=== PATIENT | female | born 1980 | race Caucasian/White ===

== ENCOUNTER 2017-09-04 10:44 | Outpatient (CLI) | payer OTHER ==
[2017-09-04 17:45] LABS: BASOPHILS % (AUTO) 0.5 %; EOSINOPHILS # (AUTO) 0.1 10^3/uL (0.0-0.7); EOSINOPHILS % (AUTO) 1.8 %; HGB - HEMOGLOBIN 12.3 g/dL (12.0-16.0); LYMPHOCYTES # (AUTO) 1.6 10^3/uL (1.5-3.5); LYMPHOCYTES % (AUTO) 33.8 %; MEAN CORPUSCULAR HEMOGLOBIN 29.6 pg (27.0-31.0); MEAN CORPUSCULAR HGB CONC 32.7 g/dL (32.0-36.0); MEAN CORPUSCULAR VOLUME 90.5 fL (81.0-99.0); MEAN PLATELET VOLUME 7.8 fL (7.9-10.8); MONOCYTES # (AUTO) 0.3 10^3/uL (0.0-1.0); MONOCYTES % (AUTO) 5.8 %; NEUTROPHILS # (AUTO) 2.7 10^3/uL (1.5-6.6); NEUTROPHILS % (AUTO) 58.1 %; PLT - PLATELET COUNT 290 10^3/uL (130-450); RED BLOOD COUNT 4.16 10^6/uL (4.20-5.40); RED CELL DISTRIBUTION WIDTH 12.5 % (12.0-15.0); WHITE BLOOD COUNT 4.6 x10^3/uL (4.8-10.8)
[2017-09-04 18:01] LABS: ALBUMIN 3.9 g/dL (3.2-5.5); ALBUMIN/GLOBULIN RATIO 1.5 (1.0-2.2); ALKALINE PHOSPHATASE 45 IU/L (42-121); ALT ALANINE AMINOTRANSFERASE 14 IU/L (10-60); AST ASPARTATE AMINOTRANSFERASE 16 IU/L (10-42); BILIRUBIN,TOTAL 0.5 mg/dL (0.2-1.0); BUN - BLOOD UREA NITROGEN 9 mg/dL (6-20); CALCIUM 8.7 mg/dL (8.5-10.3); CARBON DIOXIDE - CO2 25 mmol/L (21-32); CHLORIDE 105 mmol/L (101-111); CREATININE 0.6 mg/dL (0.4-1.0); GFR - MDRD 112 (>89); GLUCOSE 103 mg/dL (70-100); SODIUM 136 mmol/L (135-145); TOTAL PROTEIN 6.5 g/dL (6.7-8.2)
== END 2017-09-04 10:45 | disposition home or self-care (01) ==
LOC: LAB.F 10:44
PROVIDERS: ATTEND Nurse Practitioner Family
DX: N80.9 Endometriosis, unspecified (principal); I82.90 Acute embolism and thrombosis of unspecified vein
CPT/HCPCS: 36415; 80053; 84443; 85025

== ENCOUNTER 2017-10-03 08:37 | Outpatient (CLI) | payer OTHER ==
[2017-10-03] MEDS ORDERED: IOPAMIDOL-300 50 ML VIAL ONE (08:47)
[2017-10-03] MEDS ORDERED: IOPAMIDOL-300 50 ML VIAL PO ONE (10:13)
--- NOTE | 2017-10-03 10:34 | CT Report ---
EXAM: CT ABDOMEN AND PELVIS EXAM DATE: 10/03/2017 10:03 AM. CLINICAL HISTORY: UMBILICAL MASS. Umbilical repair 5 years ago. COMPARISONS: Ultrasound 10/28/2013. TECHNIQUE: Routine helical CT imaging was performed through the abdomen and pelvis. IV contrast: None .. Enteric contrast: Yes. Reconstructions: Coronal and sagittal. In accordance with CT protocol optimization, one or more of the following dose reduction techniques w ere utilized for this exam: automated exposure control, adjustment of mA and/or KV based on patient s ize, or use of iterative reconstructive technique. FINDINGS: Lung Bases: Unremarkable. Liver: Normal. No masses. Gallbladder/Bile Ducts: Unremarkable. Spleen: Normal. Pancreas: Normal. Adrenal Glands: Normal. Kidneys: Normal. No masses or hydronephrosis. Peritoneal Cavity/Bowel: Normal. No free fluid, free air or adenopathy. No masses or acute inflammato ry process. Appendix is not visualized, but no pericecal inflammatory changes to suggest appendicitis . Pelvic Organs: Limited visualization of the uterus and ovaries in the absence of IV contrast. No rashad ss abnormality seen. Bladder is normal. Vasculature: No aneurysms or other significant abnormality. Bones: No significant abnormality. Other: There is a soft tissue mass in the region of the umbilicus measuring 17 x 19 x 20 mm in ML by AP by SI dimensions. This is seen localized to the umbilicus and does not appear to extend into the p eritoneal cavity. There is no evidence of hernia. IMPRESSION: 1. Soft tissue mass in the region of the umbilicus measuring 2 cm. This is localized to the umbilicus and does not appear to extend into the peritoneal cavity. No evidence of hernia. 2. The remainder of the unenhanced abdomen and pelvis is unremarkable. [facility] Referring Provider Line: [phone] SITE ID: [id number]
== END 2017-10-03 08:38 | disposition home or self-care (01) ==
LOC: DI 08:37
PROVIDERS: ATTEND Nurse Practitioner Family
DX: R19.05 Periumbilic swelling, mass or lump (principal)
CPT/HCPCS: 74176; Q9967

== ENCOUNTER 2018-03-18 16:51 | Outpatient (CLI) | payer OTHER ==
--- NOTE | 2018-03-18 19:25 | Ultrasound Report ---
Procedure Date: 03/18/2018 Accession Number: [id number] / [id number] Procedure: US - Pelvic w/Transvaginal CPT Code: FULL RESULT: EXAM: PELVIC ULTRASOUND EXAM DATE: 03/18/2018 06:32 PM. CLINICAL HISTORY: Pelvic and perineal pain. Additional history of endometriosis and mass at the umbilicus. COMPARISON: CT of the abdomen and pelvis without contrast 10/03/2017. TECHNIQUE: Realtime transabdominal pelvic scan performed to identify the uterus and adnexa and as an overview of other pelvic structures, followed by transvaginal scan to provide greater detail of the uterus and adnexa, with static image documentation. FINDINGS: Uterus: 8.5 x 5.1 x 4.2 cm, volume 95 cc. Anteverted position. Normal size with heterogeneous echotexture, likely multiple fibroids present. Masses: 1. Posterior mid body intramural fibroid measures 1.6 x 1.6 x 1.9 cm. 2. Posterior lower uterine segment subserosal fibroid measures 0.9 x 0.7 x 0.8 cm. 3. Posterior fundal transmural fibroid measures 3.5 x 2.4 x 3.2 cm. Endometrium: 5 mm. Normal thickness, though multiple cystic-appearing foci are present throughout the endometrium, which is heterogeneous. Some fluid also present within the endometrial canal. Cervix: Unremarkable. Right Ovary: The right ovary itself is not definitively visualized. In the region of the right adnexa, there is a large loculated cystic lesion with thick septations versus folds of fallopian tube that demonstrate vascularity by color and spectral Doppler. There are additional more reticular echoes throughout the cystic spaces, possibly resolving hemorrhage and hematosalpinx, with fluid levels suggesting more acute hemorrhage. Overall, this lesion measures approximately 8.1 x 6.6 x 6.4 cm. There is an ovoid echogenic focus in the periphery of this lesion, possibly a dermoid within the ovarian parenchyma, solid components within the cystic mass or focal contracted clot, without internal vascularity by color Doppler which measures up to 2.2 cm. Left Ovary: Left ovary likely visualized on transabdominal exam immediately adjacent to the uterus with small follicles present measuring 3.8 x 3.4 cm. However, on transvaginal view this soft tissue mass with cystic spaces is difficult to separate from the uterus, including with probe pressure and may represent an alternate etiology. Free Fluid: None. Other: None. IMPRESSION: 1. Fibroid uterus with abnormal appearance of the endometrium, possibly containing cystic spaces. No discrete endometrial mass demonstrated, though endometrial mass, hyperplasia and/or endometrial polyp not excluded. If not already obtained, gynecologic consultation is recommended for this and the below findings. MRI of the pelvis without and with contrast may be useful for further evaluation as clinically warranted. 2. Complex right adnexal cystic lesion without definite visualization of the ovary, possibly hematosalpinx. No definite right ovary demonstrated. Additional findings described above possibly representing organizing clot, solid components within the right adnexal mass or dermoid. 3. Possible visualization of the left ovary immediately adjacent to the uterus, though not definitive. Alternatively, findings could represent a very atypical appearance of a fibroid. [facility]
== END 2018-03-18 16:52 | disposition home or self-care (01) ==
LOC: DI 16:51
PROVIDERS: ATTEND Registered Nurse
DX: R10.2 Pelvic and perineal pain (principal); N80.0 Endometriosis of uterus; D25.1 Intramural leiomyoma of uterus
CPT/HCPCS: 76830; 76856

== ENCOUNTER 2018-06-11 16:44 | Outpatient (CLI) | payer OTHER ==
[2018-06-11] MEDS ORDERED: GADOBUTROL 7.5 MMOL/7.5 ML VIAL ONE (17:12)
[2018-06-11] MEDS ORDERED: GADOBUTROL 7.5 MMOL/7.5 ML VIAL IVP ONE (18:35)
--- NOTE | 2018-06-14 10:09 | MRI Report ---
Reason: ENDOMETRIOSIS OF INTESTINES Procedure Date: 06/11/2018 Accession Number: [id number] / [id number] Procedure: MRI - Pelvis W/WO CPT Code: FULL RESULT: EXAM: MR PELVIS WITH AND WITHOUT CONTRAST (MR FEMALE PELVIS) EXAM DATE: 06/11/2018 06:27 PM. CLINICAL HISTORY: Endometriosis of intestines. COMPARISON: PELVIC W/TRANSVAGINAL 03/18/2018 5:22 PM ABDOMEN/PELVIS W/O 10/03/2017 10:02 AM. TECHNIQUE: Multiplanar breath-hold T1, T2 obtained through the pelvis on an MR scanner. Images obtained before and after administration of 6 mL Gadavist intravenous contrast. FINDINGS: Reproductive Organs: Uterus: The uterus is anteverted and retroflexed and measures 8.1 x 4.0 x 3.1 cm with volume 53 cc. The endometrial stripe is thickened and indistinct against the myometrium and measures up to 24 mm. There are no uterine masses. Right Ovary: The right ovary measures 5.2 x 4.2 x 3.9 cm with volume 44.6 cc. The right ovary demonstrates a dominant cystic structure with T2 shading, T1 hyperintensity which contains a T2 dark and T1 bright dependent focus which enhances consistent with endometrial implant. Surrounding enhancement is noted. Left Ovary: The left ovary measures 4.5 x 4.1 x 3.4 cm with volume 41 cc. The left ovary with multiple follicles as well as T2 dark cysts which are heterogeneously bright on T1-weighted imaging compatible with blood products. Bowel: The visualized portions of the small bowel, colon, and rectum appear normal. Bladder: The urinary bladder appears normal. Other: None. IMPRESSION: Adenomyosis. Ovarian endometrial implants as described. [facility]
== END 2018-06-11 16:45 | disposition home or self-care (01) ==
LOC: DI 16:44
PROVIDERS: ATTEND Surgery
DX: N80.0 Endometriosis of uterus (principal)
CPT/HCPCS: 72197; A9585